=== PATIENT | female | born 1955 | race Caucasian/White ===

== ENCOUNTER 2016-06-01 02:37 | Emergency (ER) | payer MEDICAID ==
[~2016-06-01] VITALS: Ht 152.4 cm; Wt 68.0 kg
[2016-06-01 03:25] VITALS: BP 149/91
== END 2016-06-01 04:30 | disposition left against medical advice (07) ==
LOC: ER 02:39
DX: H92.01 Otalgia, right ear (principal); Z53.21 Procedure and treatment not carried out due to patient leaving prior to being seen by health care provider